=== PATIENT | male | born 1975 | race American Indian/Alaskan Native ===

== ENCOUNTER 2016-09-25 03:56 | Emergency (ER) | payer SELFPAY ==
[2016-09-25 03:57] VITALS: BMI 23.6
[2016-09-25 04:22] VITALS: RESP 16
--- NOTE | 2016-09-25 04:25 | C.PDOC ---
History Of Present Illness Patient, with a past medical history of anxiety, asthma, back problems, hypertension, and depression, is brought to the ED by ambulance complaining he feels his blood pressure is high. Patient reports he has not been taking his medications recently. He is requesting a nebulizer treatment. Patient denies chest pain, shortness of breath, nausea, vomiting, numbness, or weakness. Time Seen by Provider: 09/25/16 04:24 Chief Complaint (Nursing): High Blood Pressure History Per: Patient History/Exam Limitations: no limitations Onset/Duration Of Symptoms: Other Current Symptoms Are (Timing): Still Present Severity: None Pain Scale Rating Of: 0 Exacerbating Factor(s): Pos: Recently Missed Doses Of Medication Recent travel outside of the [place]: No Additional History Per: EMS Past Medical History Reviewed: Historical Data, Nursing Documentation, Vital Signs Vital Signs: Last Vital Signs Temp 98.8 F 09/25/16 05:23 Pulse 92 H 09/25/16 05:23 Resp 16 09/25/16 05:23 BP 126/76 09/25/16 05:23 Pulse Ox 98 09/25/16 05:23 - Medical History PMH: Anxiety, Asthma, Back Problems, Depression, HTN - [facility] Procedures LINEAR REP LID LACER (08/11/14) Family History: States: Unknown Family Hx - Social History Hx Tobacco Use: Yes Hx Alcohol Use: Yes (10 beers/day) Hx Substance Use: Yes - Immunization History Hx Tetanus Toxoid Vaccination: No Hx Influenza Vaccination: No Hx Pneumococcal Vaccination: No Review Of Systems Cardiovascular: Negative for: Chest Pain Respiratory: Negative for: Shortness of Breath Gastrointestinal: Negative for: Nausea, Vomiting Neurological: Negative for: Weakness, Numbness Physical Exam - Physical Exam Appears: Non-toxic, No Acute Distress, Other (EtOH on breath) Skin: Warm, Dry Head: Atraumatic, Normacephalic Eye(s): bilateral: PERRL, EOMI Oral Mucosa: Moist Neck: Supple Chest: Symmetrical Cardiovascular: Rhythm Regular Respiratory: No Rales, No Rhonchi, No Wheezing Gastrointestinal/Abdominal: Soft, No Tenderness Back: No CVA Tenderness Extremity: Bilateral: Atraumatic, Normal Color And Temperature Neurological/Psych: Oriented x3 Gait: Steady ED Course And Treatment O2 Sat by Pulse Oximetry: 96 (RA) Pulse Ox Interpretation: Normal Progress Note: Plan: Duoneb Reevaluation Time: 05:30 Reassessment Condition: Improved Disposition Counseled Patient/Family Regarding: Studies Performed, Diagnosis, Need For Followup, Rx Given - Disposition Referrals: [facility] [Outside] Disposition: HOME/ ROUTINE Disposition Time: 04:25 Condition: FAIR Prescriptions: Albuterol HFA [Ventolin HFA 90 mcg/actuation (8 g)] 2 puff IH [id number] #1 puff Benzonatate [Tessalon Perles] 100 mg PO TID PRN #10 sgl PRN Reason: Cough Instructions: Asthma (DC) - Clinical Impression Clinical Impression: Asthma - Scribe Statement The provider has reviewed the documentation as recorded by the Scribe Lou Robles Provider Attestation: All medical record entries made by the Scribe were at my direction and personally dictated by me. I have reviewed the chart and agree that the record accurately reflects my personal performance of the history, physical exam, medical decision making, and the department course for this patient. I have also personally directed, reviewed, and agree with the discharge instructions and disposition.
[2016-09-25] MEDS: Albuterol-Ipratrop 3 mg / 0.5 (3 ml) UD IH SCH ×3 (04:35→04:53)
[2016-09-25] MEDS ORDERED: Albuterol-Ipratrop 3 mg / 0.5 (3 ml) UD ONE (04:37)
[2016-09-25 05:24] VITALS: BP 126/76; PULSE 92; TEMP 98.8
[2016-09-25 05:34] VITALS: O2SAT 96
== END 2016-09-25 05:46 | disposition home or self-care (01) ==
LOC: C.ER 03:56
DX: J45.909 Unspecified asthma, uncomplicated (principal); Z72.0 Tobacco use

== ENCOUNTER 2016-10-20 22:56 | Observation (INO) | payer MEDICAID ==
[2016-10-20 22:57] VITALS: BMI 23.6
[2016-10-20 23:13] VITALS: RESP 20
[2016-10-20] MEDS ORDERED: Sodium Chloride 0.9% 1,000 ML IV ONE (23:30)
[2016-10-20] MEDS ORDERED: Sodium Chloride 0.9% 1,000 ML ONE (23:36)
[2016-10-20 23:44] LABS: BASO % 0.3 % (0.0-2.0); EOS % 1.1 % (0.0-4.0); HEMATOCRIT 41.9 % (35.0-51.0); LYMPH # 1.4 K/uL (1.0-4.3); LYMPH % 36.1 % (20.0-40.0); MEAN CORPUSCULAR HEMOGLOBIN 36.6 pg (27.0-31.0); MEAN CORPUSCULAR HGB CONC 34.9 g/dL (33.0-37.0); MEAN PLATELET VOLUME 7.6 fL (7.2-11.7); MONO # 0.5 K/uL (0.0-0.8); MONO % 12.1 % (0.0-10.0); NRBC % 0.1 % (0.0-2.0); RED CELL DISTRIBUTION WIDTH 13.5 % (11.5-14.5)
[2016-10-20 23:53] LABS: CHLORIDE 97 mmol/L (98-107); POTASSIUM 3.5 mmol/L (3.6-5.2); SODIUM 137 mmol/L (132-148)
[2016-10-20 23:55] LABS: ALB/GLOB RATIO 1.4 (1.0-2.1); ALKALINE PHOSPHATASE 62 U/L (38-126); AST/SGOT 57 U/L (17-59); BILIRUBIN,TOTAL 0.6 mg/dL (0.2-1.3); CARBON DIOXIDE 27 mmol/L (22-30); GFR AFRICAN-AMERICAN > 60; TOTAL PROTEIN 7.3 g/dL (6.3-8.3)
[2016-10-20 23:56] LABS: ALCOHOL SERUM 215 mg/dl (0-10); ALT/SGPT 46 U/L (21-72); BLOOD UREA NITROGEN 8 mg/dL (9-20); CALCIUM 8.4 mg/dl (8.6-10.4); GLUCOSE,RANDOM 84 mg/dL (75-110)
[2016-10-20 23:57] LABS: RBC URINE 1 /hpf (0-3); URINE BILIRUBIN NEGATIVE (NEGATIVE); URINE BLOOD NEGATIVE (NEGATIVE); URINE COLOR Yellow (YELLOW); URINE GLUCOSE (UA) NORMAL (Normal); URINE KETONE NEGATIVE (NEGATIVE); URINE LEUKOCYTE ESTERASE NEG Leu/uL (Negative); URINE PROTEIN NEGATIVE (NEGATIVE); URINE UROBILINOGEN NORMAL mg/dL (0.2-1.0); WBC URINE < 1 /hpf (0-5)
[2016-10-21] MEDS ORDERED: Multivitamin (MVI) 10 ML, Thiamine 100 MG, Folic Acid 1 MG in Sodium Chloride 0.9% 1,00... IV STA (00:32)
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
[2016-10-21 04:47] LABS: BASO % 1.3 % (0.0-2.0); EOS # 0.1 K/uL (0.0-0.7); HEMATOCRIT 39.7 % (35.0-51.0); LYMPH # 1.5 K/uL (1.0-4.3); LYMPH % 46.3 % (20.0-40.0); MEAN CELL VOLUME 105.5 fL (80.0-94.0); MEAN CORPUSCULAR HGB CONC 34.1 g/dL (33.0-37.0); MEAN PLATELET VOLUME 7.5 fL (7.2-11.7); MONO # 0.4 K/uL (0.0-0.8); MONO % 12.5 % (0.0-10.0); RED CELL DISTRIBUTION WIDTH 13.7 % (11.5-14.5); WHITE BLOOD COUNT 3.3 K/uL (4.8-10.8)
[2016-10-21 05:13] VITALS: BP 108/67; PULSE 76; TEMP 98.2; O2SAT 97
== END 2016-10-21 04:57 | disposition home or self-care (01) ==
LOC: C.ER 22:56 → C.9OBSV 10-21 01:59
PROVIDERS: ADMIT Emergency Medicine; ATTEND Emergency Medicine
DX: F10.120 Alcohol abuse with intoxication, uncomplicated (principal); Z87.891 Personal history of nicotine dependence; I10 Essential (primary) hypertension; Y90.7 Blood alcohol level of 200-239 mg/100 ml; F16.10 Hallucinogen abuse, uncomplicated; F12.10 Cannabis abuse, uncomplicated
CPT/HCPCS: 36415; 80053; 80320; 80324; 80345; 80346; 80349; 80353; 80358; 80361; 81001; 83690; 83992; 85025; 85610; 85730; 96361; 96365; 96366; 96375; 99284; C9113; G0378; J2765; J3411; J7040

== ENCOUNTER 2018-08-08 07:22 | Emergency (ER) | payer MEDICAID, OTHER ==
[2018-08-08 07:22] VITALS: BMI 31.3
[2018-08-08 07:31] VITALS: BP 137/91; TEMP 98.7; O2SAT 100
--- NOTE | 2018-08-08 08:15 | C.PDOC ---
History Of Present Illness 43 y/o male w/PMhx of Asthma, HTN, anxiety, and depression, presents to the ED complaining of generalized body aches and requesting ventolin pump as well as refills on other meds. Upon questioning, patient is poor historian and uncooperative. Patient refused to show me where he was experiencing pain. He refused to answer questions and just kept asking for a "pump." He was not in any respiratory distress nor was he tachycardic. VSS. History and Exam was limited. Time Seen by Provider: 08/08/18 07:37 Chief Complaint (Nursing): Anxiety History Per: Patient History/Exam Limitations: other (poor historian/ uncooperative/ aggressive ) Onset/Duration Of Symptoms: Days Current Symptoms Are (Timing): Still Present Severity: Moderate Past Medical History Reviewed: Historical Data, Nursing Documentation, Vital Signs Vital Signs: Last Vital Signs Temp 98.7 F 08/08/18 07:29 Pulse 80 08/08/18 07:29 Resp 20 08/08/18 07:29 BP 137/91 H 08/08/18 07:29 Pulse Ox 100 08/08/18 07:29 - Medical History PMH: Anxiety, Arthritis, Asthma, Back Problems, Bipolar Disorder, Depression, HTN Denies: Chronic Kidney Disease Other Surgeries: Hx of surgeries - [facility] Procedures LINEAR REP LID LACER (08/11/14) Family History: States: No Known Family Hx - Social History Hx Tobacco Use: Yes Hx Alcohol Use: Yes (10 beers/day) Hx Substance Use: Yes - Immunization History Hx Tetanus Toxoid Vaccination: No Hx Influenza Vaccination: No Hx Pneumococcal Vaccination: No Review Of Systems Except As Marked, All Systems Reviewed And Found Negative. Constitutional: Positive for: Malaise. Negative for: Fever, Chills Cardiovascular: Negative for: Chest Pain Respiratory: Negative for: Shortness of Breath Physical Exam - Physical Exam Appears: Non-toxic, No Acute Distress, Agitated Skin: Normal Color, Warm, Dry Head: Atraumatic, Normacephalic Eye(s): bilateral: Normal Inspection Chest: Symmetrical Cardiovascular: Rhythm Regular Respiratory: Normal Breath Sounds, No Accessory Muscle Use, No Wheezing Neurological/Psych: Oriented x3, Normal Speech Gait: Steady Additional Physical Exam Comments: limited exam due to uncooperation ED Course And Treatment O2 Sat by Pulse Oximetry: 100 (RA) Pulse Ox Interpretation: Normal Progress Note: Patient appears agitated and he is not cooperative with answering questions. Patient does not want to go undergo further evaluation and treatment. He is requesting pump and medication refill. Advised patient that he would need to follow up with his PCP for refills on Anxiety meds but will provide refill for Ventolin. Repeat vitals were stable and patient was not in any acute respiratory distress. He refused to sign discharge paperwork and urinated on his bed before exiting the ED. Disposition Counseled Patient/Family Regarding: Diagnosis, Need For Followup, Rx Given - Disposition Referrals: Donnie Lara MD [Medical Doctor] - Disposition: HOME/ ROUTINE Disposition Time: 08:00 Condition: GOOD Additional Instructions: KJ ROGERS, thank you for letting us take care of you today. Your provider was Sean Garibay MD/Cindy Rosen and you were treated for BODY PAIN. The emergency medical care you received today was directed at your acute symptoms. If you were prescribed any medication, please fill it and take as directed. It may take several days for your symptoms to resolve. Return to the Emergency Department if your symptoms worsen, do not improve, or if you have any other problems. Please contact your doctor or call one of the physicians/clinics you have been referred to for refills on medications but will provide refill on Ventolin today. Bring any paperwork you were given at discharge with you along with any medications you are taking to your follow up visit. Our treatment cannot replace ongoing medical care by a primary care provider outside of the emergency department. Thank you for allowing the [facility] team to be part of your care today. Prescriptions: Albuterol HFA [Ventolin HFA 90 mcg/actuation (8 g)] 2 puff IH [id number] PRN #1 inhaler PRN Reason: Shortness Of Breath Instructions: Asthma, Adult (DC), Anxiety, Adult (DC) Forms: [employer] (Yi) - Clinical Impression Clinical Impression: Body aches, Anxiety, Asthma - PA / CONSTRUCTION DRIVER / Resident Statement MD/DO has reviewed & agrees with the documentation as recorded. - Scribe Statement The provider has reviewed the documentation as recorded by the Agustín Laird Provider Attestation All medical record entries made by the Scribe were at my direction and personally dictated by me. I have reviewed the chart and agree that the record accurately reflects my personal performance of the history, physical exam, medical decision making, and the department course for this patient. I have also personally directed, reviewed, and agree with the discharge instructions and disposition.
[2018-08-08 08:19] VITALS: PULSE 69; RESP 18
== END 2018-08-08 08:20 | disposition home or self-care (01) ==
LOC: C.ER 07:22
DX: F41.9 Anxiety disorder, unspecified (principal); J45.909 Unspecified asthma, uncomplicated; R52 Pain, unspecified; I10 Essential (primary) hypertension; Z72.0 Tobacco use

== ENCOUNTER 2018-10-02 07:18 | Emergency (ER) | payer MEDICAID, OTHER ==
[2018-10-02 07:18] VITALS: BMI 31.3
[2018-10-02 07:41] VITALS: BP 121/81; PULSE 81; RESP 18; TEMP 98; O2SAT 99
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
== END 2018-10-02 09:38 | disposition home or self-care (01) ==
LOC: C.ER 07:18
DX: S09.90XD Unspecified injury of head, subsequent encounter (principal); Y09 Assault by unspecified means

== ENCOUNTER 2018-10-24 21:40 | Emergency (ER) | payer OTHER ==
[2018-10-24 21:41] VITALS: BMI 31.3
[2018-10-24 21:53] VITALS: BP 152/73; PULSE 92; RESP 20; TEMP 98.2; O2SAT 96
--- NOTE | 2018-10-24 23:14 | C.PDOC ---
History Of Present Illness 43 year old male is brought to the ED for alcohol abuse. Patient with long standing history of substance abuse. Patient reportedly was non cooperative with history. Patient has been seen in the ED previously for same. Patient denies SI/HI, hallucinations, other medical complaints. Time Seen by Provider: 10/24/18 23:07 Chief Complaint (Nursing): Substance Abuse History Per: Patient History/Exam Limitations: intoxication Onset/Duration Of Symptoms: Hrs Current Symptoms Are (Timing): Still Present Suicide/Self Injury Attempted (Context): None Modifying Factor(s): Alcohol Associated Symptoms: denies: Depression, Suicidal Thoughts, Suicidal Plan Recent travel outside of the [place]: No Additional History Per: Patient Past Medical History Reviewed: Historical Data, Nursing Documentation, Vital Signs Vital Signs: Last Vital Signs Temp 98.2 F 10/24/18 21:52 Pulse 92 H 10/24/18 21:52 Resp 20 10/24/18 21:52 BP 152/73 H 10/24/18 21:52 Pulse Ox 96 10/24/18 21:52 Primary Care Provider: FAMILY PROVIDER,NO - Medical History PMH: Anxiety, Arthritis, Asthma, Back Problems, Bipolar Disorder, Depression, HTN, Schizophrenia Denies: Chronic Kidney Disease Surgical History: No Surg Hx - [facility] Procedures LINEAR REP LID LACER (08/11/14) Family History: States: Unknown Family Hx - Social History Hx Tobacco Use: Yes Hx Alcohol Use: Yes Hx Substance Use: Yes - Immunization History Hx Tetanus Toxoid Vaccination: No Hx Influenza Vaccination: No Hx Pneumococcal Vaccination: No Review Of Systems Constitutional: Negative for: Fever, Chills Cardiovascular: Negative for: Chest Pain Respiratory: Negative for: Shortness of Breath Gastrointestinal: Negative for: Nausea, Vomiting, Abdominal Pain Skin: Negative for: Rash Psych: Negative for: Depression, Suicidal ideation Physical Exam - Physical Exam Appears: Non-toxic, No Acute Distress, Other (sleeping comfortably) Skin: Normal Color, Warm, Dry Head: Atraumatic, Normacephalic Eye(s): bilateral: Normal Inspection Neck: Normal ROM, Supple Chest: Symmetrical Cardiovascular: Rhythm Regular Respiratory: Normal Breath Sounds, No Rales, No Rhonchi, No Wheezing Extremity: Normal ROM, No Tenderness, No Swelling Neurological/Psych: Oriented x3, Normal Speech Gait: Steady ED Course And Treatment O2 Sat by Pulse Oximetry: 96 (ON RA) Pulse Ox Interpretation: Normal Medical Decision Making Medical Decision Making: Patient sleeping comfortably in the ED, patient seen ambulating with upright steady gait in NAD. Disposition - Disposition Disposition: HOME/ ROUTINE Condition: STABLE Forms: [facility] (Yi) - Clinical Impression Clinical Impression: Substance abuse - Scribe Statement The provider has reviewed the documentation as recorded by the Scribe Fred Barragan All medical record entries made by the Scribe were at my direction and personally dictated by me. I have reviewed the chart and agree that the record accurately reflects my personal performance of the history, physical exam, medical decision making, and the department course for this patient. I have also personally directed, reviewed, and agree with the discharge instructions and disposition.
--- NOTE | 2018-10-24 23:15 | C.PDOC ---
History Of Present Illness 43 year old male is brought to the ED for alcohol abuse. Patient with long standing history of substance abuse. Patient reportedly was non cooperative with history. Patient has been seen in the ED previously for same. Patient denies SI/HI, hallucinations, other medical complaints. Time Seen by Provider: 10/24/18 23:07 Chief Complaint (Nursing): Substance Abuse History Per: Patient History/Exam Limitations: intoxication Onset/Duration Of Symptoms: Hrs Current Symptoms Are (Timing): Still Present Suicide/Self Injury Attempted (Context): None Modifying Factor(s): Alcohol Associated Symptoms: denies: Depression, Suicidal Thoughts, Suicidal Plan Recent travel outside of the [place]: No Additional History Per: Patient Past Medical History Reviewed: Historical Data, Nursing Documentation, Vital Signs Vital Signs: Last Vital Signs Temp 98.2 F 10/24/18 21:52 Pulse 92 H 10/24/18 21:52 Resp 20 10/24/18 21:52 BP 152/73 H 10/24/18 21:52 Pulse Ox 96 10/24/18 21:52 Primary Care Provider: FAMILY PROVIDER,NO - Medical History PMH: Anxiety, Arthritis, Asthma, Back Problems, Bipolar Disorder, Depression, HTN, Schizophrenia Denies: Chronic Kidney Disease Surgical History: No Surg Hx - [facility] Procedures LINEAR REP LID LACER (08/11/14) Family History: States: Unknown Family Hx - Social History Hx Tobacco Use: Yes Hx Alcohol Use: Yes Hx Substance Use: Yes - Immunization History Hx Tetanus Toxoid Vaccination: No Hx Influenza Vaccination: No Hx Pneumococcal Vaccination: No Review Of Systems Except As Marked, All Systems Reviewed And Found Negative. Cardiovascular: Negative for: Chest Pain Respiratory: Negative for: Shortness of Breath Psych: Negative for: Depression, Suicidal ideation Physical Exam - Physical Exam Appears: Non-toxic, No Acute Distress, Other (sleeping comfortably in the ED) Skin: Normal Color, Warm, Dry Head: Atraumatic, Normacephalic Eye(s): bilateral: Normal Inspection Neck: Normal ROM, Supple Chest: Symmetrical Cardiovascular: Rhythm Regular Respiratory: Normal Breath Sounds, No Rales, No Rhonchi, No Wheezing Extremity: Normal ROM Neurological/Psych: Oriented x3 Gait: Steady ED Course And Treatment O2 Sat by Pulse Oximetry: 96 (ON RA) Pulse Ox Interpretation: Normal Medical Decision Making Medical Decision Making: Patient seen ambulating in the ED with upright steady gait in NAD stable for D/C. long stnaidn h/o of substance abuse. iner sleeping in nad. observed 2 hours sleepin gin nad. no medical complaint stalbe for dc. Disposition - Disposition Disposition: HOME/ ROUTINE Disposition Time: 23:10 Condition: STABLE Instructions: Alcohol Use - When Is Drinking a Problem?, Polysubstance Abuse Forms: [facility] (Thai) - Clinical Impression Clinical Impression: Substance abuse - Scribe Statement The provider has reviewed the documentation as recorded by the Scribe Fred Barragan All medical record entries made by the Scribe were at my direction and personally dictated by me. I have reviewed the chart and agree that the record accurately reflects my personal performance of the history, physical exam, medical decision making, and the department course for this patient. I have also personally directed, reviewed, and agree with the discharge instructions and disposition.
== END 2018-10-24 23:29 | disposition home or self-care (01) ==
LOC: C.ER 21:40
DX: F19.10 Other psychoactive substance abuse, uncomplicated (principal)